=== PATIENT | female | born 1990 | race Caucasian/White ===

== ENCOUNTER → 2017-02-25 | Outpatient (CLI) | payer OTHER ==
--- NOTE | 2017-02-25 11:06 | US ---
EXAMINATION TYPE: US OB anatomy transabd DATE OF EXAM: 02/25/2017 10:07 AM COMPARISON: on PACS HISTORY: [id number] Large for dates Anatomy per order TECHNIQUE: Transabdominal (TA) EXAM MEASUREMENTS: GESTATIONAL AGE / DATING Physician Established: (35 weeks/2 days) EDC: 03/30/2017 Dates by Current Scan: (35 weeks/6 days) EDC: 03/26/2017 SURVEY IUP: Single PLACENTA: Fundal PREVIA: No previa JUAN PABLO: 15.9 cm Normal CERVICAL LENGTH (transabdominal: norm > 3.0cm): 3.0 cm BIOMETRY PRESENTATION: Vertex BPD: 8.8 cm 35 weeks / 4 days HC: 31.7 cm 35 weeks / 5 days AC: 32.0 cm 36 weeks / 0 days FL: 7.0 cm 36 weeks / 0 days ESTIMATED WEIGHT IN GRAMS: 2782 grams ESTIMATED WEIGHT IN LBS/OZS: 6 lbs. 2 oz. WEIGHT PERCENTAGE BASED ON ESTABLISHED DATE: 64 % HC/AC: Normal FL/AC: Normal HEART RATE: 140 bpm RHYTHM: Normal ANATOMY SEEN (within normal limits): * Lateral Vent (< 1 cm) 0.6 cm Cavus Septi Pellucidi Four Chamber Heart Outflow tracts: LVOT/RVOT Stomach Situs Nose / Lips Diaphragm Kidneys (bilateral) Bladder Three Vessel Cord ANATOMY SEEN (does not appear within normal limits): ANATOMY NOT SEEN: Longitudinal Spine Transverse Spine Arms (bilateral) Legs (bilateral) Cord Insert Choroid Plexus (bilateral) Midline Falx * Cisterna Magna (< 1.1 cm) cm * Nuchal Fold (< 0.6 cm) cm * Cerebellum (varies with age) cm MATERNAL WALL MEASUREMENT: 4.3 cm from skin to anterior uterine wall (if exam limited due to body conklin bitus). IMPRESSION: Limited visualization of anatomy due to late gestational age and maternal body habitus. Live IUP christoph suring 35 weeks 6 days.
== END | disposition home or self-care (01) ==
LOC: RADUSWWP 09:24
PROVIDERS: ATTEND Obstetrics & Gynecology
DX: O36.63X0 Maternal care for excessive fetal growth, third trimester, not applicable or unspecified (principal); Z3A.35 35 weeks gestation of pregnancy
CPT/HCPCS: 76811

== ENCOUNTER 2017-03-16 02:58 | Inpatient (IN) | payer OTHER ==
[2017-03-16] MEDS ORDERED: OXYTOCIN 10 UNIT/ML 1 ML VIAL IM PRN (03:09)
[2017-03-16] MEDS ORDERED: TERBUTALINE 1 MG/ML VIAL SQ PRN (03:09)
[2017-03-16] MEDS ORDERED: CARBOPROST TROMETHAMINE 250 MCG/ML 1 ML AMP IM PRN (03:09)
[2017-03-16] MEDS ORDERED: METHYLERGONOVINE 0.2 MG/ML 1 ML AMP IM PRN (03:09)
[2017-03-16] MEDS ORDERED: LIDOCAINE 1% (PF) 10 MG/ML (30 ML SDV) SQ PRN (03:09)
[2017-03-16] MEDS ORDERED: OXYTOCIN 30 UNITS/500 ML NS 30 UNIT in SALINE 1 500ML.BAG IV SCH (03:15)
[2017-03-16 03:26] LABS: Basophils % (A) 0 %; CH 29.3; CHCM 34.5; Eosinophils # (A) 0.1 k/uL (0-0.7); Eosinophils % (A) 1 %; HCT 36.7 % (34.0-46.0); HGB 12.6 gm/dL (11.4-16.0); Luc # (Auto) 0.29; Luc % (Auto) 2; Lymphocytes # (A) 2.3 k/uL (1.0-4.8); Lymphocytes % (A) 19 %; MCH 29.3 pg (25.0-35.0); MCHC 34.4 g/dL (31.0-37.0); MCV 85.3 fL (80.0-100.0); Mean Platelet Volume 6.9; Monocytes # (A) 0.6 k/uL (0-1.0); Monocytes % (A) 5 %; Neutrophils # (A) 8.8 k/uL (1.3-7.7); Neutrophils % (A) 72 %; RDW 14.1 % (11.5-15.5); WBC 12.2 k/uL (3.8-10.6); WBC (Perox) 12.52
[2017-03-16 03:58] VITALS: BMI 45.1
[2017-03-16] MEDS ORDERED: BUPIVACAINE (PF) 0.25% 30 ML VIAL ONE (04:00)
[2017-03-16] MEDS ORDERED: SODIUM CHLORIDE 0.9% 100 ML BAG ONE (04:00)
[2017-03-16] MEDS ORDERED: fentaNYL (PF) 50 MCG/ML 5 ML AMP ONE (04:00)
[2017-03-16] MEDS: LACTATED RINGERS 1,000 ML IV SCH ×2 (04:02→04:23)
[2017-03-16] MEDS ORDERED: diphenhydrAMINE 25 MG CAP PO PRN (07:10)
[2017-03-16] MEDS ORDERED: LANOLIN CREAM 5 GM TUBE TOPICAL PRN (07:10)
[2017-03-16] MEDS ORDERED: HYDROCORTISONE 2.5% RECTAL CREAM 30 GM TUBE RECTAL PRN (07:10)
[2017-03-16] MEDS ORDERED: WITCH HAZEL 1 EACH MED..PAD TOPICAL PRN (07:10)
[2017-03-16] MEDS ORDERED: SIMETHICONE 80 MG CHEWABLE PO PRN (07:10)
[2017-03-16] MEDS ORDERED: ACETAMINOPHEN TAB 325 MG TAB PO PRN (07:10)
[2017-03-16] MEDS ORDERED: ZOLPIDEM 5 MG TAB PO PRN (07:10)
[2017-03-16] MEDS ORDERED: diphenhydrAMINE 50 MG CAP PO PRN (07:10)
[2017-03-16] MEDS ORDERED: Acetaminophen-Codeine 300-30mg TAB PO PRN ×2 (07:10)
[2017-03-16] MEDS ORDERED: diphenhydrAMINE 50 MG/ML 1 ML VIAL IVP PRN ×2 (07:10)
[2017-03-16] MEDS ORDERED: BENZOCAINE/MENTHOL SPRAY 1 GM/SPRAY AEROSOL TOPICAL PRN (07:10)
--- NOTE | 2017-03-16 07:14 | P.HPOB ---
History of Present Illness H&P Date: 03/16/17 Chief Complaint: Impression at term: Active labor: MELINDA Campbell is a 26-year-old at 38 weeks gestation who ryes following spontaneous rupture membranes. She at time of presentation was dilated to 5-6 cm but was jonh somewhat irregularly. Her course otherwise was unremarkable and she didn't feel fine at this time. Pertinent labs did include A+ blood type Rh antibody was negative, rubella was immune hepatitis B surface antigen RPR and HIV were negative. Group B strep was also negative. On physical exam vital signs are stable and afebrile. This is a obese female whose HEENT is unremarkable. Her heart is regular, lungs are clear, extremities without pain. Abdomen is soft uterus is noted to be gravid. heart tones are in the 130s to 150s and are reactive. Assessment intrauterine at term. Plan expect spontaneous vaginal delivery with expectation for epidural for analgesia Past Medical History Past Medical History: No Reported History Additional Past Medical History / Comment(s): Obesity History of Any Multi-Drug Resistant Organisms: None Reported Past Surgical History: No Surgical Hx Reported Past Anesthesia/Blood Transfusion Reactions: No Reported Reaction Past Psychological History: No Psychological Hx Reported Smoking Status: Never smoker Past Alcohol Use History: None Reported Past Drug Use History: None Reported - Past Family History Mother Family Medical History: No Reported History Medications and Allergies Home Medications Medication Instructions Recorded Confirmed Type Meb-Zdwm-Ohmdo Acid 1 each PO DAILY 01/21/15 03/16/17 History [-U Capsule] Allergies Allergy/AdvReac Type Severity Reaction Status Date / Time No Known Allergies Allergy Verified 03/16/17 03:07 Exam Osteopathic Statement: *. No significant issues noted on an osteopathic structural exam other than those noted in the History and Physical/Consult. - Vital Signs Vital signs: Vital Signs Temp Pulse Resp BP 03/16/17 03:49 97.2 F L 86 20 03/16/17 03:40 97.2 F L 86 20 138/81 Intake and Output 03/15/17 03/16/17 03/16/17 22:59 06:59 14:59 Other: Weight 115.666 kg Results Result Diagrams: 03/16/17 03:10 Abnormal Lab Results - Last 24 Hours (Table) 03/16/17 Range/Units 03:10 WBC 12.2 H (3.8-10.6) k/uL Neutrophils # 8.8 H (1.3-7.7) k/uL
--- NOTE | 2017-03-16 07:15 | P.PROBDLV ---
Vaginal Delivery Note - . Vaginal Delivery Note: Patient progressed complete and pushing with spontaneous vaginal delivery of a viable female over an intact perineum. Falling deliver the head a nuchal cord 2 was noted. Patient was then placed in the Dina position and due to her size allowed for easy delivery of the anterior shoulder from underneath the pubic bone with gentle downward pressure. Once anterior shoulder was delivered posterior shoulder was easily delivered followed by the remainder the baby. A was delivered from left occiput anterior position. Once baby was delivered mouth nares were bulb suctioned and baby was then placed on mother's abdomen where the umbilical cord was clamped cut usual fashion following approximately 30 seconds pulsation. Nursery personnel was then present to assume care. Placenta was then delivered intact and Pitocin was added to the IV. scores are pending and as his weight. But mother and baby currently appear stable.
[2017-03-16] MEDS: SENNOSIDES-DOCUSATE SODIUM 1 EACH TAB PO SCH ×2 (09:26→20:32)
[2017-03-16] MEDS: IBUPROFEN 600 MG TAB PO PRN ×2 (14:24→20:32)
[2017-03-17 00:33] VITALS: RESP 16
[2017-03-17] MEDS: IBUPROFEN 600 MG TAB PO PRN (03:52)
[2017-03-17] MEDS: SENNOSIDES-DOCUSATE SODIUM 1 EACH TAB PO SCH (08:01)
[2017-03-17 08:06] VITALS: BP 127/72; PULSE 78; TEMP 97.1
--- NOTE | 2017-03-17 09:08 | P.DS ---
Providers Date of admission: 03/16/17 03:00 Expected date of discharge: 03/17/17 Attending physician: Alf Melton Primary care physician: Christine Barrientos - Discharge Diagnosis(es) (1) Normal vaginal delivery Current Visit: No Status: Acute Hospital Course: Patient presented in active labor. She underwent normal vaginal delivery. Her course was uncomplicated. She denies nausea, vomiting, fever, chills , chest pain, shortness of breath or calf pain. She is tolerating regular diet and voiding and ambulating without difficulty. She'll be discharged home post day #1 in stable condition to follow-up with me in 6 weeks. Plan - Discharge Summary New Discharge Prescriptions: Ibuprofen [Motrin] 600 mg PO Q6HR PRN #30 tab PRN Reason: Mild Pain Or Fever >= 100.5 Discharge Medication List Qyi-Zlze-Tfwjk Acid [-U Capsule] 1 cap PO DAILY 01/21/15 [ History] Ibuprofen [Motrin] 600 mg PO Q6HR PRN #30 tab 03/17/17 [Rx] Follow up Appointment(s)/Referral(s): Christine Barrientos DO [Primary Care Provider] - 6 Weeks Discharge Disposition: HOME SELF-CARE
== END 2017-03-17 10:30 | disposition home or self-care (01) | DRG 775 ==
LOC: FBPOP 02:58 → 4FBP 03:00
PROVIDERS: ADMIT Obstetrics & Gynecology; ATTEND Obstetrics & Gynecology
PROC: 10E0XZZ Delivery of Products of Conception, External Approach (ICD-10-PCS; principal; 2017-03-16)
DX: O99.214 Obesity complicating childbirth (principal); Z68.42 Body mass index [BMI] 45.0-49.9, adult; O69.81X0 Labor and delivery complicated by cord around neck, without compression, not applicable or unspecified; E66.9 Obesity, unspecified; Z3A.38 38 weeks gestation of pregnancy; Z37.0 Single live birth; Z79.899 Other long term (current) drug therapy
CPT/HCPCS: 85025; 88307; 99213

== ENCOUNTER 2017-07-27 11:03 | Day surgery (SDC) | payer OTHER ==
[2017-07-26 08:39] VITALS: BMI 38.5
--- NOTE | 2017-07-26 17:11 | P.HPOB ---
History of Present Illness H&P Date: 07/26/17 Chief Complaint: Family planning 26-year-old presents for laparoscopic tubal ligation. Review of Systems All systems: negative Constitutional: Denies chills, Denies fever Eyes: denies blurred vision, denies pain Ears, nose, mouth and throat: Denies headache, Denies sore throat Cardiovascular: Denies chest pain, Denies shortness of breath Respiratory: Denies cough Gastrointestinal: Denies abdominal pain, Denies diarrhea, Denies nausea, Denies vomiting Genitourinary: Denies dysuria, Denies hematuria Musculoskeletal: Denies myalgias Integumentary: Denies pruritus, Denies rash Neurological: Denies numbness, Denies weakness Psychiatric: Denies anxiety, Denies depression Endocrine: Denies fatigue, Denies weight change Past Medical History Past Medical History: No Reported History Additional Past Medical History / Comment(s): Obesity History of Any Multi-Drug Resistant Organisms: None Reported Past Surgical History: No Surgical Hx Reported Additional Past Surgical History / Comment(s): IUD removal Past Anesthesia/Blood Transfusion Reactions: Motion Sickness Smoking Status: Never smoker Past Alcohol Use History: None Reported Past Drug Use History: None Reported - Past Family History Mother Family Medical History: No Reported History Medications and Allergies Home Medications Medication Instructions Recorded Confirmed Type No Known Home Medications [No 06/14/17 07/26/17 History Known Home Medications] Allergies Allergy/AdvReac Type Severity Reaction Status Date / Time No Known Allergies Allergy Verified 07/26/17 08:34 Exam Osteopathic Statement: *. No significant issues noted on an osteopathic structural exam other than those noted in the History and Physical/Consult. - Vital Signs Vital signs: Intake and Output 07/26/17 07/26/17 07/26/17 06:59 14:59 22:59 Other: Weight 107.048 kg Patient Weight 07/27/17 06:59 Weight 107.048 kg Heart: Regular rate and rhythm Lungs: Clear to auscultation bilaterally Abdomen: Soft, nontender Extremities: Negative Homans sign Assessment and Plan (1) Family planning Status: Acute Plan: Laparoscopic tubal ligation
[~2017-07-27 11:03] MED LIST: DEXAMETHASONE SOD PHOSPHATE 10 MG/ML 1 ML VIAL IV ONE; HYDROmorphone 1 MG/ML 1 ML SYRINGE IVP PRN; LACTATED RINGERS 1,000 ML IV SCH; MIDAZOLAM 2 MG/2 ML VIAL IV PRN; ONDANSETRON 4 MG/2 ML VIAL IVP ONE; Pre Op ABX Message 1 EACH MISC MISCELLANE ONE
[2017-07-27] MEDS ORDERED: LIDOCAINE 1% 20 ML VIAL (10MG/ML) FOR IV START INTRADERMA ONE (11:29)
[2017-07-27] MEDS ORDERED: fentaNYL (PF) 50 MCG/ML 2 ML AMP ONE (12:36)
[2017-07-27] MEDS ORDERED: SUCCINYLCHOLINE CHLORIDE VIAL 200 MG/10 ML VIAL IV ONE (12:36)
[2017-07-27] MEDS ORDERED: LIDOCAINE 1% INJ 10MG/ML (20 ML MDV) ONE (12:36)
[2017-07-27] MEDS ORDERED: KETOROLAC 30 MG/ML 1 ML VIAL ONE (12:36)
[2017-07-27] MEDS ORDERED: PROPOFOL 10 MG/ML 20 ML VIAL IV ONE (12:36)
[2017-07-27] MEDS ORDERED: MIDAZOLAM 2 MG/2 ML VIAL ONE (12:36)
[2017-07-27] MEDS ORDERED: BUPIVACAINE (PF) 0.25% 30 ML VIAL SQ ONE ×2 (13:01)
--- NOTE | 2017-07-27 13:10 | P.OP ---
Date of Procedure: 07/27/17 Preoperative Diagnosis: 1. family planning Postoperative Diagnosis: 1. family planning Procedure(s) Performed: laparoscopic tubal ligation Implants: Anesthesia: OSMANA Surgeon: Christine Barrientos Estimated Blood Loss (ml): 3 IV fluids (ml): 700 Urine output (ml): 40 Pathology: none sent Condition: stable Disposition: PACU Indications for Procedure: Operative Findings: normal uterus tubes and ovaries Description of Procedure: Patient was taken to the operating room where general anesthesia was obtained without difficulty. She was prepped and draped in normal sterile fashion in the dorsal lithotomy position, legs placed in the Abdifatah stirrups. Bladder drained of all urine. [place] speculum placed in the vagina and the anterior lip the cervix was grasped with single-tooth tenaculum. The uterus is sounded to 7 cm and the kroner manipulator was placed. Attention was then turned to the abdomen and gloves were changed. A 10 mm infraumbilical incision was made the scalpel and 10 mm optical trocar was placed under direct visualization. A 5 mm suprapubic Incision was made and a 5 mm optical trocar was placed under direct visualization. Survey of the pelvis revealed normal uterus tubes and ovaries. The left fallopian tube was grasped with a Kleppinger and fulgurated 2 -3 cm on this side in the ampullar portion. The right fallopian tube was grasped with a Kleppinger and fulgurated 2-3 cm in the ampullar portion. All instruments were then removed from the abdomen and vagina. The 10 mm infraumbilical incision was closed with 0 Vicryl and the fascial layer and then 4-0 Vicryl in a subcuticular fashion. The 5 mm incision was closed with 4-0 Vicryl in a subcuticular fashion. Patient tolerated procedure well, sponge and instrument counts correct 2 and she was taken to recovery room in stable condition.
[2017-07-27 14:11] VITALS: RESP 16; TEMP 97.2
[2017-07-27] MEDS ORDERED: ONDANSETRON 4 MG/2 ML VIAL IVP ONE (15:05)
[2017-07-27] MEDS ORDERED: Acetaminophen-Codeine 300-30mg TAB PO ONE (15:19)
[2017-07-27] MEDS ORDERED: LACTATED RINGERS 1,000 ML IV ONE (15:30)
[2017-07-27 15:47] VITALS: BP 131/85; PULSE 85
== END 2017-07-27 16:01 | disposition home or self-care (01) ==
LOC: OR 11:03
PROVIDERS: ATTEND Obstetrics & Gynecology
DX: Z30.2 Encounter for sterilization (principal); Z88.5 Allergy status to narcotic agent
CPT/HCPCS: 81025; 58670; J2250; J0330; J1100; J2405; J2001; J3010; J1885; J2704